=== PATIENT | male | born 1985 | race Caucasian/White ===

== ENCOUNTER 2020-09-04 14:24 | Emergency (ER) | payer OTHER ==
[~2020-09-04] VITALS: Ht 185.4 cm; Wt 136.1 kg
[2020-09-04] MEDS ORDERED: LOSARTAN POTASS50 MG PO (14:44)
[2020-09-04] MEDS ORDERED: METFORMIN HCL500 M4 PO (14:44)
[2020-09-04] MEDS ORDERED: TUSNEL LIQUID178 ML PO (18:51)
[2020-09-04] MEDS ORDERED: MEDROLPACK PO (18:51)
[2020-09-04] MEDS ORDERED: ZITHROMAX500 MG PO (18:51)
[2020-09-04] MEDS ORDERED: DOLOGEN CAPLET1 EACH PO (18:51)
== END 2020-09-04 19:03 | disposition home or self-care (01) ==
LOC: ER 14:24
DX: U07.1 COVID-19 (principal); R06.02 Shortness of breath